=== PATIENT | female | born 1990 | race Caucasian/White ===

== ENCOUNTER 2017-07-29 08:37 | Emergency (ER) | payer OTHER ==
--- NOTE | 2017-07-29 08:50 | ED Physician Documentation ---
PD HPI URI - Stated complaint Stated Complaint: SORE THROAT/LT EAR PX - Chief complaint Chief Complaint: Heent - History obtained from History obtained from: Patient - History of Present Illness Timing - onset: Yesterday Timing duration: Days (2) Timing details: Gradual onset, Still present Associated symptoms: Fever, Sore throat, Swollen nodes, Dry cough (mild) Contributing factors: Sick contact (her daughter with sore throat, congestion and fever) Similar symptoms before: Has not had sx before Recently seen: Not recently seen Review of Systems Constitutional: reports: Fever Ears: reports: Ear pain (left) Throat: reports: Sore throat (significant) Respiratory: reports: Cough (mild) PD PAST MEDICAL HISTORY - Past Medical History Past Medical History: No - Past Surgical History Past Surgical History: No - Present Medications Home Medications: Ambulatory Orders Medication Instructions Recorded Confirmed No Known Home Medications [No 07/29/17 07/29/17 Known Home Medications] - Allergies Allergies/Adverse Reactions: Allergies Allergy/AdvReac Type Severity Reaction Status Date / Time No Known Drug Allergies Allergy Verified 07/29/17 08:45 - Social History Does the pt smoke?: No Smoking Status: Never smoker PD ED PE NORMAL - Vitals Vital signs reviewed: Yes - General General: Alert and oriented X 3, No acute distress, Well developed/nourished - HEENT HEENT: Ears normal. No: Pharynx benign (mild posterior redness without exudate. Mild anterior adenopathy. ) - Neck Neck: Supple, no meningeal sign - Cardiac Cardiac: RRR, No murmur - Respiratory Respiratory: Clear bilaterally - Derm Derm: Normal color, Warm and dry, No rash - Neuro Neuro: Alert and oriented X 3, No motor deficit, Normal speech Results - Vitals Vitals: Vital Signs - 24 hr 07/29/17 07/29/17 08:43 09:39 Temperature 36.7 C Heart Rate 107 H Respiratory 18 Rate Blood Pressure 124/67 O2 Saturation 98 Oxygen O2 Source Room air - Labs Labs: Laboratory Tests 07/29/17 08:50 Group A Strep Rapid Negative PD MEDICAL DECISION MAKING - ED course Complexity details: reviewed results (rapid tests are negative for her and her daughter. ), considered differential, d/w patient Departure - Departure Disposition: 01 Home, Self Care Clinical Impression: Pharyngitis Qualifiers: Pharyngitis/tonsillitis etiology: unspecified etiology Qualified Code(s): J02.9 - Acute pharyngitis, unspecified Condition: Stable Record reviewed to determine appropriate education?: Yes Instructions: ED Pharyngitis Viral Report Pending Comments: Both rapid strep tests are negative and so it appears viral at this time. Tylenol or ibuprofen if needed for pains. Both are okay at this point in . Drink lots of fluids. See if it improves over the next few days. The culture component of the test will result in 2 or 3 days will call you if it is positive. Discharge Date/Time: 07/29/17 09:45
[2017-07-29 09:40] VITALS: BP 124/67
== END 2017-07-29 09:45 | disposition home or self-care (01) ==
LOC: ED 08:37
DX: J02.9 Acute pharyngitis, unspecified (principal)
CPT/HCPCS: 87070; 87430; 99282

== ENCOUNTER 2017-08-07 10:19 | Outpatient (CLI) | payer OTHER ==
[2017-08-07 11:23] LABS: BASOPHILS % (AUTO) 0.4 %; EOSINOPHILS # (AUTO) 0.2 10^3/uL (0.0-0.7); EOSINOPHILS % (AUTO) 1.7 %; HGB - HEMOGLOBIN 13.6 g/dL (12.0-16.0); LYMPHOCYTES # (AUTO) 1.8 10^3/uL (1.5-3.5); LYMPHOCYTES % (AUTO) 19.8 %; MEAN CORPUSCULAR HEMOGLOBIN 31.4 pg (27.0-31.0); MEAN CORPUSCULAR HGB CONC 34.8 g/dL (32.0-36.0); MEAN CORPUSCULAR VOLUME 90.3 fL (81.0-99.0); MEAN PLATELET VOLUME 8.1 fL (7.9-10.8); MONOCYTES # (AUTO) 0.6 10^3/uL (0.0-1.0); MONOCYTES % (AUTO) 6.8 %; NEUTROPHILS # (AUTO) 6.6 10^3/uL (1.5-6.6); NEUTROPHILS % (AUTO) 71.3 %; PLT - PLATELET COUNT 320 10^3/uL (130-450); RED BLOOD COUNT 4.32 10^6/uL (4.20-5.40); RED CELL DISTRIBUTION WIDTH 13.2 % (12.0-15.0); WHITE BLOOD COUNT 9.3 x10^3/uL (4.8-10.8)
[2017-08-07 11:46] LABS: BILIRUBIN,URINE NEGATIVE (NEGATIVE); GLUCOSE, URINE (UA) NEGATIVE (NEGATIVE); KETONES,URINE (UA) NEGATIVE (NEGATIVE); LEUKOCYTE ESTERASE, URINE NEGATIVE (NEGATIVE); NITRITE,URINE NEGATIVE (NEGATIVE); OCCULT BLOOD,URINE NEGATIVE (NEGATIVE); PH,URINE 6.5 PH (5.0-7.5); PROTEIN,URINE NEGATIVE (NEGATIVE); UROBILINOGEN,URINE 0.2 (NORMAL) E.U./dL (NORMAL)
[2017-08-07 11:55] LABS: CLARITY,URINE HAZY (CLEAR)
[2017-08-07 11:56] LABS: BACTERIA,URINE Many /HPF (None Seen); RBC,URINE 0-5 /HPF (0-5); SQUAMOUS EPITHELIAL CELL,UR NONE SEEN (<= Few)
[2017-08-08 11:52] LABS: HEPATITIS B SURFACE ANTIGEN NON-REACTIVE (NON-REACTIVE)
[2017-08-08 14:12] LABS: HEPATITIS C ANTIBODY NON-REACTIVE (NON-REACTIVE)
[2017-08-08 16:08] LABS: HIV AG/AB 4TH GEN NON-REACTIVE (NON-REACTIVE)
== END 2017-08-07 10:20 | disposition home or self-care (01) ==
LOC: LAB 10:19
PROVIDERS: ATTEND Nurse Practitioner Obstetrics & Gynecology
DX: Z36.9 Encounter for antenatal screening, unspecified (principal)
CPT/HCPCS: 36415; 81001; 81511; 81599; 82105; 82677; 84702; 85025; 86336; 86592; 86762; 86803; 86850; 86900; 86901; 87340; 87389

== ENCOUNTER 2017-09-05 07:36 | Outpatient (CLI) | payer OTHER ==
--- NOTE | 2017-09-08 09:11 | Ultrasound Report ---
OB ULTRASOUND: 09/05/2017 HISTORY: anatomic survey. TECHNIQUE: Real-time scanning was performed with admitting representative static images obtained. LAST MENSTRUAL PERIOD: 04/15/2017 Clinical Age: 20 weeks 3 days US Age: 19 weeks 6 days EFW Hadlock: 316 g EFW% Hadlock: 19% Heart Rate: 137 bpm EDC: 01/20/2018 US EDC: 01/24/2018 BPD Hadlock: 19 weeks 6 days; Mean mm 45.8 HC Hadlock: 19 weeks 6 days; Mean mm 171.5 AC Hadlock: 19 weeks 6 days; Mean mm 145.8 FL Hadlock: 19 weeks 6 days; Mean mm 31.5 Presentation: variable Placental Location: posterior Cervical Length: 4.3 cm Amniotic Fluid: 4.5 cm FINDINGS: Last menstrual period 04/15/2017, EGA 20 weeks 3 days, LANG 2017. Age by composite ultrasound measurements today 19 weeks 6 days, LANG 2017, concordant. cardiac activity 137 BPM. Placental position posterior without previa. Central cord insertion from the placenta with 3-vessel cord. Subjectively normal amniotic fluid volume. Cervix long and closed 4.3 cm. Uterus and adnexal structures unremarkable. A survey of anatomy includes facial and intracranial structures, spine, heart and outflow tracts, stomach, diaphragm, kidneys, bladder, 3 vessel cord, and all four extremities and no anomalies are seen. IMPRESSION: SINGLE INTRAUTERINE GESTATION. AGE BY COMPOSITE ULTRASOUND MEASUREMENTS TODAY 19 WEEKS 6 DAYS, CONCORDANT WITH THE EXPECTED AGE BY LAST MENSTRUAL PERIOD. LANG BASED ON LMP 01/20/2018. NO ANATOMIC ANOMALIES ARE IDENTIFIED. MTDD
== END 2017-09-05 07:37 | disposition home or self-care (01) ==
LOC: DI 07:36
PROVIDERS: ATTEND Nurse Practitioner Obstetrics & Gynecology
DX: Z36.9 Encounter for antenatal screening, unspecified (principal)
CPT/HCPCS: 76811

== ENCOUNTER 2017-11-12 12:58 | Outpatient (CLI) | payer OTHER | END 2017-11-12 12:59 | disposition home or self-care (01) | LOC: DI 12:58 | PROVIDERS: ATTEND Registered Nurse | DX: R00.2 Palpitations (principal) | CPT/HCPCS: 93306 ==

== ENCOUNTER 2018-01-01 08:00 | Outpatient (CLI) | payer OTHER | END 2018-01-01 08:01 | disposition home or self-care (01) | LOC: LAB.R 08:00 | PROVIDERS: ATTEND Registered Nurse | DX: Z34.83 Encounter for supervision of other normal pregnancy, third trimester (principal) | CPT/HCPCS: 87081 ==

== ENCOUNTER 2018-01-26 06:51 | Inpatient (IN) | payer OTHER ==
[2018-01-26] MEDS ORDERED: SODIUM CHLORIDE FLUSH 0.9% 10 ML SYRINGE IVP PRN (07:29)
[2018-01-26] MEDS ORDERED: fentaNYL 100 MCG/2 ML VIAL IVP PRN (07:29)
[2018-01-26] MEDS: miSOPROStol 100 MCG TABLET BC SCH ×3 (08:32→16:30)
[2018-01-26 08:50] LABS: HGB - HEMOGLOBIN 11.9 g/dL (12.0-16.0); RED BLOOD COUNT 4.18 10^6/uL (4.20-5.40); WHITE BLOOD COUNT 7.9 x10^3/uL (4.8-10.8)
[2018-01-26 08:51] LABS: BASOPHILS % (AUTO) 0.6 %; EOSINOPHILS # (AUTO) 0.1 10^3/uL (0.0-0.7); EOSINOPHILS % (AUTO) 1.1 %; LYMPHOCYTES # (AUTO) 1.5 10^3/uL (1.5-3.5); LYMPHOCYTES % (AUTO) 18.9 %; MEAN CORPUSCULAR HEMOGLOBIN 28.5 pg (27.0-31.0); MEAN CORPUSCULAR HGB CONC 34.2 g/dL (32.0-36.0); MEAN CORPUSCULAR VOLUME 83.3 fL (81.0-99.0); MEAN PLATELET VOLUME 9.2 fL (7.9-10.8); MONOCYTES # (AUTO) 0.3 10^3/uL (0.0-1.0); NEUTROPHILS % (AUTO) 75.4 %; PLT - PLATELET COUNT 221 10^3/uL (130-450); RED CELL DISTRIBUTION WIDTH 14.5 % (12.0-15.0)
--- NOTE | 2018-01-26 09:03 | HISTORY & PHYSICAL EXAMINATION ---
Admit History - Visit Reason Visit Reason: Other - : 3 Parity: 2 Premature: 0 Ectopic: 0 : 0 Care: positive: [facility] Risk/History: positive: None Complications This : positive: None Smoking Status: Never smoker - Mother's Labs Mother's Blood Type: positive: O Mother's RH: positive: Positive GBS: positive: Group B Step Negative Rubella Status: positive: Immune Meds/Allgy - Home Medications Home Medications: Ambulatory Orders Medication Instructions Recorded Confirmed No Known Home Medications 07/29/17 07/29/17 - Allergies Allergies/Adverse Reactions: Allergies Allergy/AdvReac Type Severity Reaction Status Date / Time No Known Drug Allergies Allergy Verified 07/29/17 08:45 Review of Systems - Constitutional Constitutional: denies: Fatigue, Fever, Chills - Eyes Eyes: denies: Pain, Blurred vision, Spots in vision, Dipolpia - Cardiovascular Cariovascular: denies: Irregular heart rate, Palpitations, Chest pain, Edema - Respiratory Respiratory: denies: Cough, Wheezing, SOB at rest - Gastrointestinal Gastrointestinal: denies: Abdominal pain, Constipation, Diarrhea, Nausea, Vomiting - Genitourinary Genitourinary: denies: Dysuria - Integumentary Integumentary: denies: Rash - Psychiatric Psychiatric: denies: Depression, Anxiety - Endocrine Endocrine: denies: Polyuria, Polydypsia Physical - Abdominal Exam Vital Signs: Temp Pulse Resp BP Pulse Ox 36.2 C L 81 16 108/65 99 01/26/18 08:20 01/26/18 08:20 01/26/18 08:20 01/26/18 08:20 01/26/18 08:20 Uterine Resting Tone: negative: Soft - Monitoring Heart Rate Baseline: 130 Strip Review: positive: Category I - Presentation Presentation: positive: Vertex - Vaginal Exam Membranes: positive: Membranes intact - Speculum Exam Speculum Exam Performed: positive: No Plan for Labor - Plan For Labor I expect patient to be DC'd or transferred within 96 hours.: Yes Plan for Labor: HPI: 27yo @ 40.6wks gestation by 12wk U/S c/w LMP for induction of labor seconday to post-dates . She transferred her care from [facility] to [facility] at 15wks gestation. Her has been complicated only by elevated 1 hour GTT with normal subsequent 3 hour GTT. She reports she is doing well and denies VB, Lof, or contractions. +FM. Denies ZARCO, visual disturbances, or edema. Anxious to meet her baby and excited to "not be any longer". Dating Criteria: 1.) LMP 04/15/2017 2.) Initial U/S @ 12 wks - agrees with LMP dating 3.) serial exams 15-40wks agrees OB History: G1: 02/03/2014; vaginal delivery, epidural; 40.4wk gestation; Live ; EFW 3062- complications: Pneumothorax G2: 11/08/2014: Vaginal delivery, epidural; 41w4d gestation; Live ; EFW 3402- complications: Jaundice G3: Current PMHx: No significant [employer] Hx: No hx STIs; no hx [employer] surgeries Surgical Hx: None Social Hx: Never smoker. No ETOH or IVDA; to Moo; Stay at home mom Family Hx: HTN- Father; Crohn's disease - mother Medications: PNV Allergies: NKDA labs: O pos, antibody negative HIV non-reactive Hep B neg RPR non-reactive Rubella immune Hgb 13.6 Hct 39.0 PLT 320 GC/CT neg 28 week labs: 1 hour GTT 144 Hgb 12.8 PLT 230 Antibody neg 3 hour GTT: 86; 148; 134; 116 Genetic testing: quad screen negative GBS negative Immunizations: Tdap 10/30/2017; Influenza declined U/S: 10/03/2017 FAS WNL. Posterior placenta, no previa. Size c/w LMP dating. Assessment: 27yo @ 40.6wks gestation by L=12wk U/S Post-dates GBS negative Plan: IOL with pre-induction cervical ripening with 50mcg BC misoprostol q 4 hours Continuous monitoring Anticipate spontaneous vaginal delivery
[2018-01-26] MEDS: LACTATED RINGERS 1,000 ML IV SCH ×2 (09:59→19:49)
--- NOTE | 2018-01-26 12:24 | PROVIDER PROGRESS NOTE ---
Labor Progress Note - Uterine Monitoring Uterine Monitoring Mode: positive: External toco Contraction Frequency (min/apart): 2-5 Contraction Intensity: positive: Mild to moderate Uterine Resting Tone: positive: Soft - Monitoring Monitor Mode: positive: External ultrasound Heart Rate Baseline: 140 Heart Rate Variability: positive: Moderate (6-25 bmp) Accelerations: positive: Present, 15x15 Decelerations: positive: None Strip Review: positive: Category I - Labor Progress Note Labor Progress Note/Additional Text: S: Patient lying comfortably in bed. Was able to get a little nap in. Tolerating contractions well and describes them as menstrual-like cramping that is slightly uncomfortable. supportive at the bedside. O: BP 108/65, HR 81 FHR baseline 140s, moderate variability, + accels, no decels. Contractions palpate mild every 2-5 minutes with soft resting tone SVE deferred A: 27yo @ 40.6wks gestation by L=12wk U/S Pre-induction cervical ripening BOW intact GBS negative FHR category I P: Continue pre-induction cervical ripening with misoprostol 50mcg BC q 4 hours Continuos monitoring Repeat SVE as clinically indicated Encouraged ambulation and position changes Anticipate spontaneous vaginal delivery
[2018-01-26] MEDS: SODIUM CHLORIDE FLUSH 0.9% 10 ML SYRINGE IVP SCH ×2 (12:30→18:27)
--- NOTE | 2018-01-26 18:43 | PROVIDER PROGRESS NOTE ---
Labor Progress Note - Uterine Monitoring Uterine Monitoring Mode: positive: External toco Contraction Frequency (min/apart): 1-2 Contraction Intensity: positive: Moderate to strong Uterine Resting Tone: positive: Soft - Monitoring Monitor Mode: positive: External ultrasound Heart Rate Baseline: 150 Heart Rate Variability: positive: Moderate (6-25 bmp) Accelerations: positive: Present, 15x15 Decelerations: positive: None Strip Review: positive: Category I - Vaginal Exam Dilation (in cm): 3 Effacement (%): 80 Station: -1 Cervical Position: Posterior - Labor Progress Note Labor Progress Note/Additional Text: S: Ambulating in the hallway and coping well with contractions. Reports increased intensity. Mood is good. She is anxious to get things progressing forward and move towards gestation. supportive at the bedside. O: BP 124/81, HR 99 SVE 3/80/-1, posterior, medium consistency, vertex. AROM moderate amount of clear fluid Contractions palpate moderate-firm every 1-2 minutes lasting 60-80 seconds with soft resting tone. FHR baseline 150, minimal variability, no accels, no decels A: 27yo @ 40.6wks gestation Pre-induction cervical ripening with 50 mcg misoprostol q 4 hours x 3 doses GBS neg FHR Category I P: Continuous monitoring D/c misoprostol and reevaluate at 2029 when next dose of medication is due Will evaluate for initiation of pitocin with titration per protocol at 2029 Pt denies further questions or concerns at this time. Reevaluate in 2 hours or sooner PRN.
[2018-01-26] MEDS ORDERED: ONDANSETRON 4 MG/2 ML VIAL IVP PRN ×2 (19:37→20:57)
[2018-01-26] MEDS ORDERED: fent/BUPIV 2 MCG/0.125% 250 ML EP ONE (20:10)
[2018-01-26] MEDS ORDERED: BUPIVACAINE 0.25% PF 10 ML VIAL ONE (20:22)
--- NOTE | 2018-01-26 20:24 | ANESTHESIA ---
Pre-Anesthesia VS, & Labs - Diagnosis Active labor - Procedure vaginal delivery Vital Signs: Temp Pulse Resp BP Pulse Ox 37.2 C 94 19 124/81 H 99 01/26/18 18:31 01/26/18 18:31 01/26/18 18:31 01/26/18 18:31 01/26/18 18:31 Height 5 ft 4 in Weight (kg) 67.132 kg Body Mass Index 21.8 - NPO Other (patient not npo for labor) - Is Patient ?: Yes - Lab Results Current Lab Results: Laboratory Tests 01/26/18 08:20: WBC 7.9, RBC 4.18 L, Hgb 11.9 L, Hct 34.8 L, MCV 83.3, MCH 28.5, MCHC 34.2, RDW 14.5, Plt Count 221, MPV 9.2, Neut # (Auto) 6.0, Lymph # (Auto) 1.5, [place] # (Auto) 0.3, Eos # (Auto) 0.1, Baso # (Auto) 0.0, Absolute Nucleated RBC 0.00, Nucleated RBC % 0.0 Fish Bones: 01/26/18 08:20 Home Medications and Allergies Active Medications Fentanyl (Fentanyl) 50 mcg IVP Q1H PRN PRN Reason: PAIN Lactated Ringer's (Lr) 1,000 mls @ 100 mls/hr IV .Q10H [facility] Last Admin: 01/26/18 09:59 Dose: Not Given Misoprostol (Cytotec) 50 mcg BC Q4H [facility] Last Admin: 01/26/18 16:30 Dose: 50 mcg Ondansetron HCl (Zofran Inj) 4 mg IVP Q4HR PRN PRN Reason: Nausea / Vomiting Last Admin: 01/26/18 19:43 Dose: 4 mg Sodium Chloride (Normal Saline Flush 0.9%) 10 ml IVP 0100,0900,1700 [facility] Last Admin: 01/26/18 18:27 Dose: Not Given Sodium Chloride (Normal Saline Flush 0.9%) 10 ml IVP PRN PRN PRN Reason: NEEDED PER PROVIDER ORDERS No Known Home Medications 07/29/17 Allergies/Adverse Reactions: Allergies Allergy/AdvReac Type Severity Reaction Status Date / Time No Known Drug Allergies Allergy Verified 04/28/18 08:45 Anes History & Medical History - Anesthetic History Family history of Anesthesia Complications: Denies Family history of Malignant Hyperthermia: Denies - Medical History Cardiovascular: reports: None Pulmonary: reports: None Gastrointestinal: reports: None Urinary: reports: None Neuro: reports: None Musculoskeletal: reports: None Endocrine/Autoimmune: reports: None Blood Disorders: reports: None Smoking Status: Never smoker Psychosocial: reports: No issues indicated - Obstetrical History : 3 Parity: 2 Events: positive: None Complications: positive: None Exam General: Alert, Oriented x3, Cooperative, No acute distress Mallampati classification: II Respiratory: Lungs clear, Normal breath sounds, No respiratory distress, No accessory muscle use Mental/Cognitive Status: Alert/Oriented X3, Normal for patient Plan Anesthesia Type: Epidural Consent for Procedure(s) Verified and Reviewed: Yes Code Status: Attempt Resuscitation ASA classification: 2-Mild systemic disease Is this case an emergency?: No
[2018-01-26] MEDS ORDERED: ePHEDrine 50 MG/ML VIAL IVP PRN (20:57)
[2018-01-26] MEDS ORDERED: NALOXONE 0.4 MG/ML VIAL IVP PRN (20:57)
[2018-01-26] MEDS ORDERED: LACTATED RINGERS 500 ML IV ONE (20:57)
[2018-01-26] MEDS ORDERED: fent/BUPIV 2 MCG/0.125% 250 ML EP PRN (20:57)
[2018-01-26] MEDS ORDERED: NALBUPHINE 10 MG/ML AMP IVP PRN (20:57)
--- NOTE | 2018-01-26 21:03 | PROVIDER PROGRESS NOTE ---
Labor Progress Note - Uterine Monitoring Uterine Monitoring Mode: positive: External toco Contraction Frequency (min/apart): 2-3 Contraction Intensity: positive: Strong Uterine Resting Tone: positive: Soft - Monitoring Monitor Mode: positive: External ultrasound Heart Rate Baseline: 150 Heart Rate Variability: positive: Minimal (0-5 bpm) Accelerations: positive: Present, 15x15 Decelerations: positive: None Strip Review: positive: Category I - Vaginal Exam Dilation (in cm): 5 Effacement (%): 75 Station: 0 - Labor Progress Note Labor Progress Note/Additional Text: S: Patient feeling comfortable with epidural. Prior to placement she was experiencing frequent contractions with little relief between contractions. O: BP 110/67, HR 90 Contractions palpate firm every 1-3 minutes with soft resting tone FHR baseline 140, moderate variability, + accels, no decels SVE 5/75/0, vertex A: 27yo @ 40.6wks gestation by L=12wk U/S Active labor AROM x 3 hours GBS neg P: Continuous monitoring Epidural in place for adequate pain management per patient request Will change pt position on peanut ball q 30 min Repeat SVE in 4 hours or sooner if clinically indicated Anticipate spontaneous vaginal delivery
[2018-01-26] MEDS ORDERED: MINERAL OIL LIGHT 10 ML MC ONE (21:38)
[2018-01-26] MEDS ORDERED: LIDOCAINE 1% 50 ML MDV ONE (21:38)
[2018-01-26] MEDS ORDERED: OXYTOCIN/SODIUM CHLORIDE 500 ML IV ONE (21:56)
[2018-01-26] MEDS ORDERED: HYDROCORTISONE/PRAMOXINE 10 GM PR PRN (22:12)
[2018-01-26] MEDS ORDERED: WITCH HAZEL/GLYCERIN 1 EACH MED..PAD TOP PRN (22:12)
[2018-01-26] MEDS ORDERED: OXYTOCIN/SODIUM CHLORIDE 250 ML IV ONE (22:12)
--- NOTE | 2018-01-26 22:25 | DELIVERY NOTE ---
Delivery Note - Labor Labor: positive: Augmented by ARM, Other - Delivery Method Delivery Method: positive: Spontaneous vaginal delivery - Presentation Presentation: positive: Vertex, GOLDY - left occiput anterior - Nuchal Cord Nuchal Cord: positive: None - Amniotic Fluid Description Amniotic Fluid Description: positive: Clear - Episiotomy Type Episiotomy Type: positive: None - Laceration Laceration: positive: None - Delivery Outcome Delivery Outcome: positive: Livebirth - [place]: positive: Placed in direct skin contact with mother, Bulb syringe, Stimulated, [place] used [place] sex: positive: Female - Cord Cord: positive: 3 vessels - Placenta Placenta: positive: Intact, Spontaneous - Estimated Blood Loss Estimated Blood Loss (in cc): 350 - Post Delivery Events Post Delivery Events: positive: No post delivery events - Delivery Comments (Free Text/Narrative) Delivery Comments (Free Text/Narrative): Labor: This 27yo @ 40.6wks gestation by L=12wk U/S presented on 01/26/2018 @ 0700 for pre-induction cervical ripening in anticipation for IOL secondary to post-dates gestation. SVE was deferred upon admission secondary to absence of contractions since recent cervical examination in the office. Vertex on marshall's. FHR pattern demonstrated a baseline 150 in a Category I pattern. Misoprostol 50mcg BC administered q 4 hours x 3 doses followed by spontaneous progression to active labor. AROM occurred at 1818 and was noted to be a moderate amount of clear fluid. Epidural placed per maternal request. The patient progressed to c/c/+3 at 2144. : Normal of viable female named Tonie on 01/26/2018 @ 2150. No nuchal cord. 's 8/9 at 1 and 5 min respectively. The was placed on maternal abdomen, stimulated, dried, and placed skin to skin. The umbilical cord was allowed to stop pulsating at which time it was doubly clamped by CNM and cut by FOB. Cord blood was obtained. Placenta delivered spontaneously and intact at 2154. 3VC. Pitocin administered via IV for hemostasis. EBl 350mL. Fourth stage: Uterine fundus firm and there is no excessive bleeding. The perineum, vagina, and cervix were inspected and found to be intact. Family bonding well and mother and infant are skin to skin. Both mom and baby were left in stable condition.
[2018-01-26] MEDS: ACETAMINOPHEN 500 MG TABLET PO SCH (23:03)
[2018-01-26] MEDS: IBUPROFEN 800 MG TABLET PO SCH (23:03)
[2018-01-27] MEDS: IBUPROFEN 800 MG TABLET PO SCH ×3 (05:59→18:06)
[2018-01-27] MEDS: ACETAMINOPHEN 500 MG TABLET PO SCH ×2 (07:00→16:10)
--- NOTE | 2018-01-27 09:51 | PROVIDER PROGRESS NOTE ---
Subjective - Subjective Subjective: S: Bonding well with baby. without difficulty. Bleeding decreased and is light. Pain well controlled with oral medications. Some tailbone discomfort but overall feeling well. supportive at the bedside. O: Admit labs: Hgb 11.9, Hct 34.8, PLT 221 BP 107/69, HR 84, RR 17, t 36.4 Heart RRR w/o M/G/R, lungs CTAB, abdomen gravid, soft nontender with fundus firm at U-1. Bilateral LE's no edema. Mood is good. A: 27yo -->P3 PPD#1 s/p TSVD of viable female infant Perineum intact P: Continue routine pp care and medications. Plan for discharge home tomorrow. They verbalized understanding and agree to above plan. Denies further questions or concerns at this time. Objective - Vital Signs/Intake & Output Vital Signs: Vital Signs x48h Temp Pulse Resp BP BP Pulse Ox 01/27/18 08:09 36.4 C L 84 17 107/69 99 01/27/18 02:36 36.8 C 63 16 106/58 L 100 Intake & Output: Intake & Output 01/24/18 01/25/18 01/26/18 01/27/18 23:59 23:59 23:59 23:59 Output Total 1250 Balance -1250 - Lab Results Fish Bones: 01/26/18 08:20
[2018-01-27] MEDS: DOCUSATE SODIUM 100 MG CAPSULE PO SCH ×2 (10:05→22:03)
[2018-01-28] MEDS: ACETAMINOPHEN 500 MG TABLET PO SCH ×2 (00:37→08:39)
[2018-01-28] MEDS: IBUPROFEN 800 MG TABLET PO SCH ×2 (00:38→08:38)
[2018-01-28] MEDS: DOCUSATE SODIUM 100 MG CAPSULE PO SCH (08:39)
--- NOTE | 2018-01-28 08:56 | Discharge Plan ---
Discharge Plan Disposition: 01 Home, Self Care Condition: Good Diet: Regular Activity Restrictions: No Restrictions Shower Restrictions: No Driving Restrictions: No Weight Bearing: Full Weight No Smoking: If you smoke, Please STOP! Call for help. Follow-up with: Aylin Wheeler CNM, ARNP [Provider Admit Priv/Credential] -
--- NOTE | 2018-01-28 09:20 | PROVIDER PROGRESS NOTE ---
Subjective - Subjective Subjective: S: Bonding well with baby. without difficulty. Pain well controlled with oral medications. Some moderate tailbone discomfort. Bleeding decreased and is moderate. supportive at the bedside. O: BP 113/70, HR 70, T3 36.7, RR 18 Heart RRR w/o M/G/R, lungs CTAB, abdomen soft and nontender with fundus firm at U-2. Perineum intact and without edema. Bilateral LE's no edema. A: 27yo -->P3 PPD#2 s/p TSVD of viable female infant P: Reviewed self-care and warning s/sx and when to present. Advised Ibuprofen and tylenol PO OTC for pain management. Plans to f/u with myself at [facility] in 2 weeks or sooner PRN. Objective - Vital Signs/Intake & Output Vital Signs: Vital Signs x48h Temp Pulse Resp BP Pulse Ox 01/28/18 08:10 36.7 C 70 18 113/70 99 Intake & Output: Intake & Output 01/25/18 01/26/18 01/27/18 01/28/18 23:59 23:59 23:59 23:59 Intake Total 500 Output Total 1250 Balance -750 - Lab Results Fish Bones: 01/26/18 08:20
[2018-01-28 12:00] VITALS: BP 129/67
--- NOTE | 2018-01-28 12:32 | Labor Flowsheet ---
Labor Flowsheet Datetime Report Generated by CPN: 01/28/2018 12:32 Datetime: 01/28/2018 11:58 VITAL SIGNS NBP Sys/[place]elia/Mean (mmHg): 129 : 67 : 80 Pulse: 76 Datetime: 01/26/2018 22:53 Stage of : Recovery Datetime: 01/26/2018 22:46 LaborFlag: Labor Datetime: 01/26/2018 21:50 UTERINE ACTIVITY Monitor Mode: External Frequency (min): 1.5-2 Quality: Strong Duration (sec): 80-120 Pattern: Normal: <= 5 Contractions in 10 Minutes Resting Tone (Palpate): Relaxed ASSESSMENT A Monitor Mode: External US FHR Baseline Rate : 140 Variability: Moderate 6-25 bpm Accelerations: None Decelerations: Variable Category: Category II Datetime: 01/26/2018 21:45 SpO2 (%): 100 Patient Care Comments: lithotomy Datetime: 01/26/2018 21:44 STAGE 2 Pushing: No Urge to Push Pushing Position: Pushing with Contractions Pushing Progress: Descent with Pushing Datetime: 01/26/2018 21:43 COMMUNICATION Communication: Provider at Bedside Provider Notified (Name): Aylin Liam Datetime: 01/26/2018 21:42 VAGINAL EXAM Dilatation (cm): 10.0 Effacement (%): 100 Station: 3 Exam by: CRogersDivine, RN Datetime: 01/26/2018 21:40 TEACHING Instructional Method: Verbal Plan of Care: Plan of Care Discussed; Vaginal Delivery Labor/Induction: Pushing Methods Datetime: 01/26/2018 21:22 Patient Position/Activity: Left Tilt Datetime: 01/26/2018 21:17 PAIN Pain Scale: 0 Pain Presence: None/Denies Pain Type: N/A Anesthesia Level Check: T4- Nipple Line Datetime: 01/26/2018 21:00 MATERNAL ASSESSMENT Level of Consciousness: Fully Conscious Headache: Denies Breath Sounds, Left: Clear and Equal Breath Sounds, Right: Clear and Equal Nausea/Vomiting: Hx of Nausea/Vomiting RUQ Epigastric Pain: Denies Datetime: 01/26/2018 20:45 Contraction Comments: poor tracing d/t maternal position and thrashing for epidural placement Medication Comments: nitrous stopped Datetime: 01/26/2018 20:43 Epidural Procedure: Loading Dose Datetime: 01/26/2018 20:38 Monitor Interventions for FHR: Ultrasound Adjusted Datetime: 01/26/2018 20:26 ANESTHESIA Epidural Positioning: Sitting Datetime: 01/26/2018 20:06 Pain Location: Abdomen Pain Relief Measures: Comfort Measures Pain Assessment Comments: using nitrous Datetime: 01/26/2018 20:00 Unit Routine: Unit Personnel Pain Management: Pain Scale/Goals; Comfort Measures Datetime: 01/26/2018 19:59 Respirations: 12 Temperature (C): 37.3 Datetime: 01/26/2018 19:52 Cervix, Consistency: Moderate Cervix, Position: Midposition Datetime: 01/26/2018 19:49 Actions for Decelerations: IV Bolus Communication Comments: pt may have an epidural if she wants one; if pt desires RN can check VE fir st Datetime: 01/26/2018 19:43 MEDICATIONS Antiemetics/Antacids: Zofran (mg) @ Datetime: 01/26/2018 19:34 Comments: poor tracing d/t maternal thrashing Datetime: 01/26/2018 18:28 Vital Sign Comments: Pt having a contraction and bending her arm. Datetime: 01/26/2018 18:18 Membrane Status: Ruptured Membranes Rupture Method: Artificial Amniotic Fluid Color: Clear Amniotic Fluid Amount: Moderate Amniotic Fluid Odor: Normal Membrane Comments: AROM CMN Liam Datetime: 01/26/2018 16:30 Cervical Ripening Agents: Cytotec @ 50 Datetime: 01/26/2018 15:30 Monitor Interventions for UA: [place] Adjusted Pain Coping: Sleeping Datetime: 01/26/2018 15:00 PATIENT CARE Oxygen Method: Room Air Datetime: 01/26/2018 14:17 I/O Interventions: Up to BR
--- NOTE | 2018-01-28 19:13 | DISCHARGE SUMMARY ---
Physician: FILI Xiong DATE OF ADMISSION: 01/26/2018 DATE OF DISCHARGE: 01/28/2018 DIAGNOSES ON ADMISSION 1. A 27-year-old G3, P2-0-0-2, at 40.6 weeks' gestation. 2. Postdates . 3. Group B strep negative. DIAGNOSES ON DISCHARGE 1. A 27-year-old G3, P3-0-0-3, status post spontaneous term vaginal delivery at 40.6 weeks' gestation. 2. Normal recovery. BRIEF HISTORY: This is a patient of [facility] who presented on 01/26/2018 at 0700 for preinduction cervical ripening in anticipation for induction of labor secondary to postdates gestation. Vaginal examination was deferred upon admission secondary to absence of uterine contractions since recent cervical examination in the office. Vertex position on Ankit. Misoprostol 50 mcg buccal administered every 4 hours for a total of 3 doses, followed by spontaneous progression to active labor. Artificial rupture of membranes occurred at 1818 on 01/26/2018. It was noted to be a moderate amount of clear fluid. Epidural was placed upon maternal request. Patient progressed to spontaneously deliver a viable female on 01/26/2018 at 2150. Apgars were 8 and 9 at one and five minutes, respectively. EBL 350 mL. Perineum, vagina, and cervix were inspected following delivery and found to be intact. Patient has been doing well in her course. She is ambulating and tolerating a regular diet. She was without difficulty and her lochia is normal. She has been given instructions to take Tylenol and ibuprofen p.o. [id number] for pain management. She has been encouraged to continue her vitamin while . She has been given precautions to call if she has any worsening fevers, chills, abdominal pain, increased vaginal bleeding, or foul smelling vaginal lochia. She intends to follow up with myself at [facility] in 2 weeks, or sooner as needed. Both patient and her verbalized understanding and agreed to the above plan. They deny further questions or concerns today. TD: 01/28/2018 10:32 [facility]
== END 2018-01-28 12:00 | disposition home or self-care (01) | DRG 807 ==
LOC: WFO 06:51 → FBP 06:52 → WFO 07:29 → FBP 07:30
PROVIDERS: ADMIT Nurse Practitioner Obstetrics & Gynecology; ATTEND Nurse Practitioner Obstetrics & Gynecology
PROC: 10E0XZZ Delivery of Products of Conception, External Approach (ICD-10-PCS; principal; 2018-01-26)
PROC: 10907ZC Drainage of Amniotic Fluid, Therapeutic from Products of Conception, Via Natural or Artificial Opening (ICD-10-PCS; 2018-01-26)
DX: O48.0 Post-term pregnancy (principal); Z37.0 Single live birth; Z3A.40 40 weeks gestation of pregnancy
CPT/HCPCS: 85025